=== PATIENT | female | born 1985 | race Caucasian/White ===

== ENCOUNTER → 2016-05-10 | Outpatient (CLI) | payer OTHER | END | disposition home or self-care (01) | LOC: LABWHC1 14:21 | PROVIDERS: ATTEND Obstetrics & Gynecology | DX: O03.9 Complete or unspecified spontaneous abortion without complication (principal) | CPT/HCPCS: 36415; 86694; 86695; 86696 ==

== ENCOUNTER 2016-05-31 19:46 | Emergency (ER) | payer OTHER ==
[2016-05-31 19:59] VITALS: RESP 18; TEMP 97.6
[2016-05-31] MEDS ORDERED: SODIUM CHLORIDE 0.9% 1,000 ML IV STA ×2 (19:59)
--- NOTE | 2016-05-31 20:02 | ED ---
Nausea/Vomiting/Diarrhea HPI - General Chief complaint: Nausea/Vomiting/Diarrhea Stated complaint: vomiting,heart palpitations Time Seen by Provider: 05/31/16 19:46 Source: patient, family, RN notes reviewed Mode of arrival: EMS Limitations: no limitations - History of Present Illness Initial comments: This is a 31-year-old female with a history of being diagnosed with PVCs which she's had none for the past several months also did have a stillborn baby in April 04 of this past year states she was standing doing dishes when she became lightheaded dizzy. She felt weak and felt tachycardic. She did call EMS. She was brought here for evaluation. Per paramedics the heart rate was in the 100 1:15 range. Of note patient states she vomited about 3 times prior to all the symptoms started she does have a past history of bulimia. She didn' t hurt herself today because of apparent distress. Right now she does feel better. She denies any history of thyroid disease no recent fevers chills nausea vomiting sweats although she did feel chilled on the way here. No dysuria no hematuria. MD complaint: nausea, vomiting, other - Related Data Home Medications Medication Instructions Recorded Confirmed No Known Home Medications [No 05/31/16 05/31/16 Known Home Medications] Allergies Allergy/AdvReac Type Severity Reaction Status Date / Time No Known Allergies Allergy Verified 05/31/16 20:11 Review of Systems ROS Statement: Those systems with pertinent positive or pertinent negative responses have been documented in the HPI. ROS Other: All systems not noted in ROS Statement are negative. Past Medical History Past Medical History: No Reported History Additional Past Medical History / Comment(s): History of PVCs History of Any Multi-Drug Resistant Organisms: None Reported Past Surgical History: No Surgical Hx Reported Past Anesthesia/Blood Transfusion Reactions: No Reported Reaction Past Psychological History: Anxiety Smoking Status: Never smoker Past Alcohol Use History: None Reported Past Drug Use History: None Reported - Past Family History Mother Family Medical History: Hypertension Father Family Medical History: Myocardial Infarction ([place]) General Exam - General Exam Comments Initial Comments: This is a well-developed well-nourished awake alert oriented 3 female Limitations: no limitations General appearance: alert, in no apparent distress Head exam: Present: atraumatic, normocephalic, normal inspection Eye exam: Present: normal appearance, PERRL, EOMI. Absent: scleral icterus, conjunctival injection, periorbital swelling ENT exam: Present: normal exam, mucous membranes moist Neck exam: Present: normal inspection. Absent: tenderness, meningismus, lymphadenopathy Respiratory exam: Present: normal lung sounds bilaterally. Absent: respiratory distress, wheezes, rales, rhonchi, stridor Cardiovascular Exam: Present: regular rate, normal rhythm, normal heart sounds. Absent: systolic murmur, diastolic murmur, rubs, gallop, clicks GI/Abdominal exam: Present: soft, normal bowel sounds. Absent: distended, tenderness, guarding, rebound, rigid Extremities exam: Present: normal inspection, full ROM, normal capillary refill. Absent: tenderness, pedal edema, joint swelling, calf tenderness Back exam: Present: normal inspection Neurological exam: Present: alert, oriented X3, CN II-XII intact Psychiatric exam: Present: normal affect, normal mood Skin exam: Present: warm, dry, intact, normal color. Absent: rash Course Vital Signs 05/31/16 19:54 Temperature 97.6 F Pulse Rate 90 Respiratory 18 Rate Blood Pressure 129/59 O2 Sat by Pulse 100 Oximetry Medical Decision Making - Medical Decision Making The patient showing much improvement discuss the findings with her and her and family. The presentation is consistent with a vasovagal episode. Patient be discharged clinically she was also mildly dehydrated. - Lab Data Result diagrams: 05/31/16 20:10 05/31/16 20:10 Lab Results 05/31/16 05/31/16 05/31/16 Range/Units 20:10 20:10 20:10 WBC 7.0 (3.8-10.6) k/uL RBC 3.70 L (3.80-5.40) m/uL Hgb 11.5 (11.4-16.0) gm/dL Hct 34.1 (34.0-46.0) % MCV 92.2 (80.0-100.0) fL MCH 31.2 (25.0-35.0) pg MCHC 33.9 (31.0-37.0) g/dL RDW 11.5 (11.5-15.5) % Plt Count 212 (150-450) k/uL Neutrophils % 78 % Lymphocytes % 13 % Monocytes % 6 % Eosinophils % 1 % Basophils % 0 % Neutrophils # 5.5 (1.3-7.7) k/uL Lymphocytes # 0.9 L (1.0-4.8) k/uL Monocytes # 0.4 (0-1.0) k/uL Eosinophils # 0.1 (0-0.7) k/uL Basophils # 0.0 (0-0.2) k/uL Sodium 141 (137-145) mmol/L Potassium 3.9 (3.5-5.1) mmol/L Chloride 110 H (98-107) mmol/L Carbon Dioxide 24 (22-30) mmol/L Anion Gap 7 mmol/L BUN 11 (7-17) mg/dL Creatinine 0.74 (0.52-1.04) mg/dL Est GFR (MDRD) Af Amer >60 (>60 ml/min/1.73 sqM) Est GFR (MDRD) Non-Af >60 (>60 ml/min/1.73 sqM) Glucose 97 (74-99) mg/dL Calcium 8.6 (8.4-10.2) mg/dL Magnesium 1.9 (1.6-2.3) mg/dL Total Bilirubin 0.3 (0.2-1.3) mg/dL AST 19 (14-36) U/L ALT 34 (9-52) U/L Alkaline Phosphatase 52 (38-126) U/L Total Protein 6.6 (6.3-8.2) g/dL Albumin 3.8 (3.5-5.0) g/dL Urine Color Urine Appearance (Clear) Urine pH (5.0-8.0) Ur Specific [place] (1.001-1.035) Urine Protein (Negative) Urine Glucose (UA) (Negative) Urine Ketones (Negative) Urine Blood (Negative) Urine Nitrate (Negative) Urine Bilirubin (Negative) Urine Urobilinogen (<2.0) mg/dL Ur Leukocyte Esterase (Negative) Urine HCG, Qual Not Detected (Not Detectd) 05/31/16 Range/Units 20:10 WBC (3.8-10.6) k/uL RBC (3.80-5.40) m/uL Hgb (11.4-16.0) gm/dL Hct (34.0-46.0) % MCV (80.0-100.0) fL MCH (25.0-35.0) pg MCHC (31.0-37.0) g/dL RDW (11.5-15.5) % Plt Count (150-450) k/uL Neutrophils % % Lymphocytes % % Monocytes % % Eosinophils % % Basophils % % Neutrophils # (1.3-7.7) k/uL Lymphocytes # (1.0-4.8) k/uL Monocytes # (0-1.0) k/uL Eosinophils # (0-0.7) k/uL Basophils # (0-0.2) k/uL Sodium (137-145) mmol/L Potassium (3.5-5.1) mmol/L Chloride (98-107) mmol/L Carbon Dioxide (22-30) mmol/L Anion Gap mmol/L BUN (7-17) mg/dL Creatinine (0.52-1.04) mg/dL Est GFR (MDRD) Af Amer (>60 ml/min/1.73 sqM) Est GFR (MDRD) Non-Af (>60 ml/min/1.73 sqM) Glucose (74-99) mg/dL Calcium (8.4-10.2) mg/dL Magnesium (1.6-2.3) mg/dL Total Bilirubin (0.2-1.3) mg/dL AST (14-36) U/L ALT (9-52) U/L Alkaline Phosphatase (38-126) U/L Total Protein (6.3-8.2) g/dL Albumin (3.5-5.0) g/dL Urine Color Colorless Urine Appearance Clear (Clear) Urine pH 6.0 (5.0-8.0) Ur Specific [place] 1.003 (1.001-1.035) Urine Protein Negative (Negative) Urine Glucose (UA) Negative (Negative) Urine Ketones Negative (Negative) Urine Blood Negative (Negative) Urine Nitrate Negative (Negative) Urine Bilirubin Negative (Negative) Urine Urobilinogen <2.0 (<2.0) mg/dL Ur Leukocyte Esterase Negative (Negative) Urine HCG, Qual (Not Detectd) - EKG Data -: EKG Interpreted by [place] EKG shows normal: sinus rhythm, axis, intervals, QRS complexes, ST-T waves (EKG was reviewed shows normal sinus rhythm with a rate 95 AL interval 144 QRS duration 68 QT/QTC of 340/[address]-T wave changes.) Rate: normal - Radiology Data Radiology results: report reviewed (I did review the x-ray report no acute findings), image reviewed Disposition Clinical Impression: Vasovagal episode, Dehydration Disposition: HOME SELF-CARE Condition: Good Instructions: Acute Nausea and Vomiting (ED), Near Syncope (ED), Dehydration ( ED)
[2016-05-31 20:34] LABS: Appearance,Urine Clear (Clear); Bilirubin,Urine Negative (Negative); Glucose,Urine (UA) Negative (Negative); Ketones,Urine Negative (Negative); Leukocyte Esterase,Urine Negative (Negative); Nitrite,Urine Negative (Negative); Protein,Urine Negative (Negative); Specific Gravity,Urine 1.003 (1.001-1.035); UA Billing (MACRO vs. MICRO) CHEM; Urobilinogen,Urine <2.0 mg/dL (<2.0)
[2016-05-31 20:41] LABS: Basophils % (A) 0 %; CH 31.4; CHCM 34.2; Eosinophils # (A) 0.1 k/uL (0-0.7); Eosinophils % (A) 1 %; HCT 34.1 % (34.0-46.0); HDW 2.53; HGB 11.5 gm/dL (11.4-16.0); Luc # (Auto) 0.13; Luc % (Auto) 2; Lymphocytes # (A) 0.9 k/uL (1.0-4.8); Lymphocytes % (A) 13 %; MCH 31.2 pg (25.0-35.0); MCHC 33.9 g/dL (31.0-37.0); MCV 92.2 fL (80.0-100.0); Mean Platelet Volume 7.4; Monocytes # (A) 0.4 k/uL (0-1.0); Monocytes % (A) 6 %; Neutrophils # (A) 5.5 k/uL (1.3-7.7); Neutrophils % (A) 78 %; RDW 11.5 % (11.5-15.5)
[2016-05-31 20:46] LABS: ALT 34 U/L (9-52); AST 19 U/L (14-36); Alkaline Phosphatase 52 U/L (38-126); Anion Gap 7 mmol/L; Blood Urea Nitrogen 11 mg/dL (7-17); Calcium 8.6 mg/dL (8.4-10.2); Carbon Dioxide 24 mmol/L (22-30); Chloride 110 mmol/L (98-107); Glucose 97 mg/dL (74-99); Magnesium 1.9 mg/dL (1.6-2.3); Non-African American GFR(MDRD) >60 (>60 ml/min/1.73 sqM); Potassium 3.9 mmol/L (3.5-5.1); Sodium 141 mmol/L (137-145); Total Bilirubin 0.3 mg/dL (0.2-1.3); Total Protein 6.6 g/dL (6.3-8.2)
[2016-05-31 20:57] LABS: Creatine Kinase 45 U/L (30-135)
[2016-05-31 21:10] LABS: Creatine Kinase MB <0.2 ng/mL (0.0-2.4); Troponin I <0.012 ng/mL (0.000-0.034)
--- NOTE | 2016-05-31 21:15 | XR ---
EXAMINATION TYPE: XR chest 2V DATE OF EXAM: 05/31/2016 8:53 PM COMPARISON: Prior chest x-ray August 2015 HISTORY: Dysrhythmia TECHNIQUE: Frontal and lateral views of the chest are obtained. FINDINGS: There is no focal air space opacity, pleural effusion, or pneumothorax seen. The cardiac silhouette size is within normal limits. There are prominent lung volumes suggestive of underlying C OPD. There are overlying cardiac leads. The osseous structures are intact. IMPRESSION: No acute cardiopulmonary process.
[2016-05-31 21:40] VITALS: BP 100/58; PULSE 85
== END 2016-05-31 21:39 | disposition home or self-care (01) ==
LOC: SUPCPDRO 19:46 → EC 19:46
DX: R55 Syncope and collapse (principal); E86.0 Dehydration
CPT/HCPCS: 36415; 71020; 80053; 81003; 81025; 82550; 82553; 83735; 84443; 84484; 85025; 93005; 96360; 99284

== ENCOUNTER 2016-11-09 13:34 | Emergency (ER) | payer OTHER ==
--- NOTE | 2016-11-09 14:43 | ED ---
Dizziness HPI - General Chief Complaint: Dizziness Stated Complaint: Dizzy/Nausea Time Seen by Provider: 11/09/16 14:18 Source: patient Mode of arrival: ambulatory Limitations: no limitations - History of Present Illness Initial Comments: This 31-year-old white female presents with a complaint of some dizziness. She states that this is been intermittent for the last 2 months. It is described as a unsteadiness which is worse with any movement of her head. She has had some tinnitus to her right ear as well. She states that she has had sinus problems over the past 2 months as well. She initially was on a Zithromax Z- Rick and then later on Augmentin. She apparently stopped this approximately 3 days ago. She is also tried Flonase as well as Mucinex, and Isabel-D. She stopped Isabel-D as this made her feel jittery. She only takes the Flonase intermittently. She apparently has an appointment with Dr. Padilla in the next week. She denies any known previous sinus symptoms. She has had some sinus drainage as well as pressure over her maxillary sinuses. She was prescribed Ceftin by her primary care physician recently. She has not started taking this as of yet but did get it filled. No fevers or chills. No other complaints or modifying factors. No hearing loss. She also was prescribed Antivert but has not picked this up as of yet. - Related Data Home Medications Medication Instructions Recorded Confirmed Cefuroxime Axetil [Ceftin] 500 mg PO BID 11/09/16 11/09/16 Allergies Allergy/AdvReac Type Severity Reaction Status Date / Time No Known Allergies Allergy Verified 11/09/16 15:04 Review of Systems ROS Statement: Those systems with pertinent positive or pertinent negative responses have been documented in the HPI. ROS Other: All systems not noted in ROS Statement are negative. Past Medical History Past Medical History: No Reported History Additional Past Medical History / Comment(s): History of PVCs History of Any Multi-Drug Resistant Organisms: None Reported Past Surgical History: No Surgical Hx Reported Past Anesthesia/Blood Transfusion Reactions: No Reported Reaction Past Psychological History: Anxiety Smoking Status: Never smoker Past Alcohol Use History: None Reported Past Drug Use History: None Reported - Past Family History Mother Family Medical History: Hypertension Father Family Medical History: Myocardial Infarction ([place]) General Exam - General Exam Comments Initial Comments: GENERAL: The patient is well nourished and well hydrated. VITAL SIGNS: Heart rate, blood pressure, respiratory rate reviewed as recorded in nurse's notes. EYES: Pupils are round and reactive. Extraocular movements are intact. No conjunctival / lid redness or swelling. ENT: No external evidence of injury, swelling, or ecchymosis. Airway is patent. Throat is clear. Tympanic membranes are clear. There is some mild tenderness over the maxillary sinuses bilaterally. NECK: Nontender. No swelling or evidence of injury. No subcutaneous emphysema. Trachea is midline. No thyroid mass. HEART: Regular rate and rhythm. Good peripheral pulses. LUNGS/CHEST: Breath sounds clear and equal bilaterally. No rales, rhonchi, or wheezes. No ecchymosis, subcutaneous emphysema, or tenderness. ABDOMEN: Abdomen soft without tenderness. No palpable masses or organomegaly. No peritoneal signs. No abdominal wall swelling or ecchymosis. EXTREMITIES: No extremity tenderness. Normal muscle tone and function. No thoracolumbar tenderness. NEUROLOGIC: Sensation is grossly intact. Cranial nerve exam reveals face is symmetrical, tongue is midline, speech is clear. SKIN: No abrasions or ecchymosis is noted. No induration or masses noted. PSYCHIATRIC: Alert and oriented. Appropriate behavior and judgment. Limitations: no limitations Course Vital Signs 11/09/16 13:40 Temperature 98.3 F Pulse Rate 81 Respiratory 17 Rate Blood Pressure 123/70 O2 Sat by Pulse 100 Oximetry Medical Decision Making - Medical Decision Making The patient was seen and examined. All diagnostics were reviewed. He had a computed tomography scan of her brain and sinuses. This did not show any acute process. Is felt that she likely does have a degree of sinusitis which apparently is chronic at this time. She also likely does have a vestibular neuronitis in the right ear. Overall, it appears she is on good treatment. She should start the Ceftin. She also should utilize the Antivert. She is counseled to take the Flonase daily as prescribed. She also is instructed to utilize Mucinex DM [id number] instead of regular Mucinex. It is felt as though she would benefit from follow-up with the ENT physician this next week as scheduled. She does complain of some facial pain and a slight headache and receives a Toradol IM injection. It is felt as though she is stable for discharge. She is counseled regarding her diagnosis in detail and leaves in no distress. Disposition Clinical Impression: Sinusitis, Vertigo, Tinnitus, Vestibular neuronitis, Sinus headache Disposition: HOME SELF-CARE Condition: Good Instructions: Vertigo (ED), Sinusitis (ED) Referrals: Oscar Mann PAC [Family Provider] - 1-2 days Gerardo Bui DO [Doctor of Osteopathic Medicine] - 11/16/16 Time of Disposition: 16:03
--- NOTE | 2016-11-09 15:18 | CT ---
EXAMINATION TYPE: CT brain wo con DATE OF EXAM: 11/09/2016 COMPARISON: 04/08/2012 HISTORY: Dizziness, sinusitis, VILLAFUERTE, ear pain CT DLP: 920.4 mGycm. Automated Exposure Control for Dose Reduction was Utilized. TECHNIQUE: CT scan of the head is performed without contrast. FINDINGS: There is no acute intracranial hemorrhage, mass effect, or midline shift identified. The ventricles and sulci are within normal limits in size. The globes are intact and the visualized sin uses are clear. IMPRESSION: No acute intracranial hemorrhage, mass effect, or midline shift is seen.
--- NOTE | 2016-11-09 15:26 | CT ---
EXAMINATION TYPE: CT sinus wo con DATE OF EXAM: 11/09/2016 COMPARISON: NONE HISTORY: Dizziness, sinusitis, VILLAFUERTE, ear pain CT DLP: 429.4 mGycm. Automated Exposure Control for Dose Reduction was Utilized. TECHNIQUE: CT scan of the sinuses is performed without contrast, axial images are obtained, coronal r eformatted images are also reviewed. FINDINGS: The paranasal sinuses including the frontal, ethmoid, sphenoid, and maxillary sinuses bila terally are well-aerated without abnormal opacification. The ostiomeatal complex is patent bilateral ly on the coronal images. Visualized portion of mastoid air cells show no abnormal opacification. The globes are intact bilate rally. Small guy bullosa on the left. There is a nasal septal deviation. IMPRESSION: The sinuses are clear and the ostiomeatal complex is patent bilaterally.
[2016-11-09] MEDS ORDERED: KETOROLAC 60 MG/2 ML VIAL IM STA (16:04)
[2016-11-09 16:13] VITALS: BP 101/59; PULSE 76; RESP 16; TEMP 97.9
== END 2016-11-09 16:40 | disposition home or self-care (01) ==
LOC: EC 13:34
DX: J32.9 Chronic sinusitis, unspecified (principal); H81.21 Vestibular neuronitis, right ear; H93.11 Tinnitus, right ear
CPT/HCPCS: 70450; 70486; 99284; 96372; J1885

== ENCOUNTER → 2017-01-26 | Outpatient (CLI) | payer OTHER ==
[2017-01-26 20:50] LABS: Clam IgE <0.10 kU/L; Egg White IgE <0.10 kU/L; Peanut IgE <0.10 kU/L; Scallop IgE <0.10 kU/L; Soybean IgE <0.10 kU/L
== END | disposition home or self-care (01) ==
LOC: LABWHC1 13:31
PROVIDERS: ATTEND Internal Medicine Critical Care Medicine
DX: J30.9 Allergic rhinitis, unspecified (principal); Z91.09 Other allergy status, other than to drugs and biological substances
CPT/HCPCS: 36415; 82785; 85008; 86003

== ENCOUNTER 2017-02-08 08:04 | Emergency (ER) | payer OTHER ==
[2017-02-08] MEDS ORDERED: MAG HYDROX/AL HYDROX/SIMETH 30 ML, HYOSCYAMINE ELIXIR 10 ML, CIMETIDINE HCL 300 MG PO STA ×3 (08:33)
[2017-02-08] MEDS ORDERED: SODIUM CHLORIDE 0.9% 500 ML IV STA (08:33)
--- NOTE | 2017-02-08 08:36 | ED ---
Abdominal Pain HPI - General Chief Complaint: Abdominal Pain Stated Complaint: abd pain Time Seen by Provider: 02/08/17 08:20 Source: patient, RN notes reviewed Mode of arrival: ambulatory Limitations: no limitations - History of Present Illness Initial Comments: 31-year-old female presents emergency Department chief complaint stomach issues. Patient states his been on for the last 3 months. Patient states she has seen multiple physicians for this. Patient states that she feels that she is under production of acid. Patient states that she gets severe heartburn especially when she lays down at nighttime. She states she has pain in her epigastric region which is nonradiating also has some dull pain in her midabdomen. Patient states that he can be with any foods. Patient thought she had some ALLERGY to certain foods and had extensive testing with Dr. Leblanc and her primary care physician. Patient states that feels that she is not breaking down proteins and causes her to be dizzy. Patient denies fever, chills, change in bowel habits. Denies any dysuria hematuria. Denies any chance . Patient had no prior abdominal surgeries. - Related Data Previous Rx's Medication Instructions Recorded Omeprazole 40 mg PO DAILY #14 capsule. 02/08/17 Allergies Allergy/AdvReac Type Severity Reaction Status Date / Time No Known Allergies Allergy Verified 02/08/17 08:38 Review of Systems ROS Statement: Those systems with pertinent positive or pertinent negative responses have been documented in the HPI. ROS Other: All systems not noted in ROS Statement are negative. Past Medical History Past Medical History: No Reported History Additional Past Medical History / Comment(s): History of PVCs History of Any Multi-Drug Resistant Organisms: None Reported Past Surgical History: No Surgical Hx Reported Past Anesthesia/Blood Transfusion Reactions: No Reported Reaction Past Psychological History: Anxiety Smoking Status: Never smoker Past Alcohol Use History: None Reported Past Drug Use History: None Reported - Past Family History Mother Family Medical History: Hypertension Father Family Medical History: Myocardial Infarction ([place]) General Exam Limitations: no limitations General appearance: alert, in no apparent distress Head exam: Present: atraumatic, normocephalic, normal inspection Neck exam: Present: normal inspection. Absent: tenderness, meningismus, lymphadenopathy Respiratory exam: Present: normal lung sounds bilaterally. Absent: respiratory distress, wheezes, rales, rhonchi, stridor Cardiovascular Exam: Present: regular rate, normal rhythm, normal heart sounds. Absent: systolic murmur, diastolic murmur, rubs, gallop, clicks GI/Abdominal exam: Present: soft, tenderness (Moderate tenderness epigastric region), normal bowel sounds. Absent: distended, guarding, rebound, rigid Back exam: Absent: CVA tenderness (R), CVA tenderness (L) Skin exam: Present: warm, dry, intact, normal color. Absent: rash Course Vital Signs 02/08/17 08:14 Temperature 97.2 F L Pulse Rate 89 Respiratory 16 Rate Blood Pressure 101/60 O2 Sat by Pulse 100 Oximetry Medical Decision Making - Medical Decision Making 31-year-old female presented emergency from for epigastric pain. Patient's laboratory, ultrasound, x-ray within normal limits. Patient states symptoms are most likely related to GERD/gastritis. Patient believes that she has low acid production. Patient says a mild starting since but I advised her that she should try this to see if it improves. Patient is advised follow-up with on- call GI Dr. Seals. Return parameters were discussed. - Lab Data Result diagrams: 02/08/17 08:26 02/08/17 08:55 Lab Results 02/08/17 02/08/17 02/08/17 Range/Units 08:26 08:55 08:55 WBC 5.9 (3.8-10.6) k/uL RBC 4.15 (3.80-5.40) m/uL Hgb 13.3 (11.4-16.0) gm/dL Hct 39.8 (34.0-46.0) % MCV 95.8 (80.0-100.0) fL MCH 31.9 (25.0-35.0) pg MCHC 33.3 (31.0-37.0) g/dL RDW 12.6 (11.5-15.5) % Plt Count 209 (150-450) k/uL Neutrophils % 76 % Lymphocytes % 14 % Monocytes % 7 % Eosinophils % 1 % Basophils % 0 % Neutrophils # 4.5 (1.3-7.7) k/uL Lymphocytes # 0.8 L (1.0-4.8) k/uL Monocytes # 0.4 (0-1.0) k/uL Eosinophils # 0.1 (0-0.7) k/uL Basophils # 0.0 (0-0.2) k/uL Sodium 141 (137-145) mmol/L Potassium 4.1 (3.5-5.1) mmol/L Chloride 105 (98-107) mmol/L Carbon Dioxide 28 (22-30) mmol/L Anion Gap 8 mmol/L BUN 10 (7-17) mg/dL Creatinine 0.75 (0.52-1.04) mg/dL Est GFR (MDRD) Af Amer >60 (>60 ml/min/1.73 sqM) Est GFR (MDRD) Non-Af >60 (>60 ml/min/1.73 sqM) Glucose 97 (74-99) mg/dL Calcium 9.1 (8.4-10.2) mg/dL Total Bilirubin 0.2 (0.2-1.3) mg/dL AST 19 (14-36) U/L ALT 33 (9-52) U/L Alkaline Phosphatase 63 (38-126) U/L Total Protein 7.0 (6.3-8.2) g/dL Albumin 4.1 (3.5-5.0) g/dL Amylase <30 L (30-110) U/L Lipase 86 (23-300) U/L Urine Color Urine Appearance (Clear) Urine pH (5.0-8.0) Ur Specific [place] (1.001-1.035) Urine Protein (Negative) Urine Glucose (UA) (Negative) Urine Ketones (Negative) Urine Blood (Negative) Urine Nitrite (Negative) Urine Bilirubin (Negative) Urine Urobilinogen (<2.0) mg/dL Ur Leukocyte Esterase (Negative) Urine HCG, Qual Not Detected (Not Detectd) 02/08/17 Range/Units 08:55 WBC (3.8-10.6) k/uL RBC (3.80-5.40) m/uL Hgb (11.4-16.0) gm/dL Hct (34.0-46.0) % MCV (80.0-100.0) fL MCH (25.0-35.0) pg MCHC (31.0-37.0) g/dL RDW (11.5-15.5) % Plt Count (150-450) k/uL Neutrophils % % Lymphocytes % % Monocytes % % Eosinophils % % Basophils % % Neutrophils # (1.3-7.7) k/uL Lymphocytes # (1.0-4.8) k/uL Monocytes # (0-1.0) k/uL Eosinophils # (0-0.7) k/uL Basophils # (0-0.2) k/uL Sodium (137-145) mmol/L Potassium (3.5-5.1) mmol/L Chloride (98-107) mmol/L Carbon Dioxide (22-30) mmol/L Anion Gap mmol/L BUN (7-17) mg/dL Creatinine (0.52-1.04) mg/dL Est GFR (MDRD) Af Amer (>60 ml/min/1.73 sqM) Est GFR (MDRD) Non-Af (>60 ml/min/1.73 sqM) Glucose (74-99) mg/dL Calcium (8.4-10.2) mg/dL Total Bilirubin (0.2-1.3) mg/dL AST (14-36) U/L ALT (9-52) U/L Alkaline Phosphatase (38-126) U/L Total Protein (6.3-8.2) g/dL Albumin (3.5-5.0) g/dL Amylase (30-110) U/L Lipase (23-300) U/L Urine Color Light Yellow Urine Appearance Clear (Clear) Urine pH 6.5 (5.0-8.0) Ur Specific [place] 1.003 (1.001-1.035) Urine Protein Negative (Negative) Urine Glucose (UA) Negative (Negative) Urine Ketones Negative (Negative) Urine Blood Negative (Negative) Urine Nitrite Negative (Negative) Urine Bilirubin Negative (Negative) Urine Urobilinogen <2.0 (<2.0) mg/dL Ur Leukocyte Esterase Negative (Negative) Urine HCG, Qual (Not Detectd) Disposition Clinical Impression: Gastritis, Epigastric abdominal pain Disposition: HOME SELF-CARE Condition: Stable Instructions: Abdominal Pain (ED) Additional Instructions: Please return to the Emergency Department if symptoms worsen or any other concerns. Prescriptions: Omeprazole 40 mg PO DAILY #14 capsule.dr Referrals: Jose Miguel Red MD [Primary Care Provider] - 1-2 days Mallory Johnson MD [STAFF PHYSICIAN] - 1-2 days Time of Disposition: 10:42
[2017-02-08] MEDS: PANTOPRAZOLE 40 MG/10 ML VIAL IVP STA ×2 (08:49→08:51)
[2017-02-08 09:09] LABS: Appearance,Urine Clear (Clear); Bilirubin,Urine Negative (Negative); Glucose,Urine (UA) Negative (Negative); Ketones,Urine Negative (Negative); Leukocyte Esterase,Urine Negative (Negative); Nitrite,Urine Negative (Negative); PH, Urine 6.5 (5.0-8.0); Protein,Urine Negative (Negative); Specific Gravity,Urine 1.003 (1.001-1.035); UA Billing (MACRO vs. MICRO) CHEM; Urobilinogen,Urine <2.0 mg/dL (<2.0)
[2017-02-08 09:19] LABS: Basophils % (A) 0 %; CH 32.5; CHCM 34.1; Eosinophils # (A) 0.1 k/uL (0-0.7); Eosinophils % (A) 1 %; HCT 39.8 % (34.0-46.0); HDW 2.34; HGB 13.3 gm/dL (11.4-16.0); Luc # (Auto) 0.12; Luc % (Auto) 2; Lymphocytes # (A) 0.8 k/uL (1.0-4.8); Lymphocytes % (A) 14 %; MCH 31.9 pg (25.0-35.0); MCHC 33.3 g/dL (31.0-37.0); MCV 95.8 fL (80.0-100.0); Mean Platelet Volume 7.4; Monocytes # (A) 0.4 k/uL (0-1.0); Monocytes % (A) 7 %; Neutrophils # (A) 4.5 k/uL (1.3-7.7); Neutrophils % (A) 76 %; RBC 4.15 m/uL (3.80-5.40); RDW 12.6 % (11.5-15.5); WBC 5.9 k/uL (3.8-10.6); WBC (Perox) 6.29
[2017-02-08 09:21] LABS: ALT 33 U/L (9-52); AST 19 U/L (14-36); Alkaline Phosphatase 63 U/L (38-126); Amylase <30 U/L (30-110); Anion Gap 8 mmol/L; Blood Urea Nitrogen 10 mg/dL (7-17); Calcium 9.1 mg/dL (8.4-10.2); Carbon Dioxide 28 mmol/L (22-30); Chloride 105 mmol/L (98-107); Glucose 97 mg/dL (74-99); Non-African American GFR(MDRD) >60 (>60 ml/min/1.73 sqM); Potassium 4.1 mmol/L (3.5-5.1); Sodium 141 mmol/L (137-145); Total Bilirubin 0.2 mg/dL (0.2-1.3)
--- NOTE | 2017-02-08 10:07 | US ---
EXAMINATION TYPE: US abdomen limited DATE OF EXAM: 02/08/2017 COMPARISON: NONE CLINICAL HISTORY: Pain. Abdomen pain, patient ate 3 hours prior to test EXAM MEASUREMENTS: Liver Length: 15.6 cm Gallbladder Wall: 0.2 cm CBD: 0.3 cm Right Kidney: 10.9 x 4.0 x 4.0 cm Pancreas: visualized portions wnl, tail limited by overlying midline bowel gas Liver: wnl Gallbladder: wnl Evidence for sonographic Calle's sign: no CBD: wnl Right Kidney: wnl IMPRESSION: No shadowing mobile gallstones or ultrasound evidence for acute cholecystitis
--- NOTE | 2017-02-08 10:34 | XR ---
EXAMINATION TYPE: XR chest 1V DATE OF EXAM: 02/08/2017 COMPARISON: Prior chest x-ray 05/31/2016 HISTORY: Pain TECHNIQUE: Single frontal view of the chest is obtained. FINDINGS: There is no focal air space opacity, pleural effusion, or pneumothorax seen. The cardiac silhouette size is within normal limits. The osseous structures are intact. IMPRESSION: No acute process.
[2017-02-08 11:04] VITALS: BP 118/68; PULSE 79; RESP 18; TEMP 98.2
== END 2017-02-08 11:00 | disposition home or self-care (01) ==
LOC: EC 08:04
DX: K29.70 Gastritis, unspecified, without bleeding (principal); Z53.20 Procedure and treatment not carried out because of patient's decision for unspecified reasons
CPT/HCPCS: 36415; 71010; 76705; 80053; 81003; 81025; 82150; 83690; 85025; 86677; 96360; 99284

== ENCOUNTER → 2017-03-08 | Outpatient (CLI) | payer OTHER ==
[2017-03-09 13:05] LABS: Avocado Class CLASS 0; Banana IgE Class CLASS 0; Cow's Milk IgE Class CLASS 0; Egg White IgE <0.35 kU/L (<0.35); Hazelnut IgE <0.35 kU/L (<0.35); Hazelnut IgE Class CLASS 0; Kiwi IgE <0.35 kU/L (<0.35); Kiwi IgE Class CLASS 0; Peanut IgE <0.35 kU/L (<0.35); Potato IgE <0.35 kU/L (<0.35); Potato IgE Class CLASS 0; Soybean IgE <0.35 kU/L (<0.35)
[2017-03-09 13:41] LABS: Crab IgE <0.35 kU/L (<0.35); Crab IgE Class CLASS 0; Lettuce IgE Class CLASS 0; Pork IgE Class CLASS 0
[2017-03-09 13:42] LABS: Beef IgE <0.35 kU/L (<0.35); Beef IgE Class CLASS 0; Salmon IgE <0.35 kU/L (<0.35); Salmon IgE Class CLASS 0
[2017-03-09 13:43] LABS: Egg Yolk IgE Class CLASS 0; Oat IgE Class CLASS 0; Onion IgE <0.35 kU/L (<0.35); Onion IgE Class CLASS 0; Yeast Bakers/Brew IgE <0.35 kU/L (<0.35); Yeast Bakers/Brew IgE Class CLASS 0
[2017-03-09 13:44] LABS: Celery IgE <0.35 kU/L (<0.35); Celery IgE Class CLASS 0; Chicken IgE Class CLASS 0; Chocolate IgE Class CLASS 0; Latex IgE Class CLASS 0; Lobster IgE <0.35 kU/L (<0.35); Lobster IgE Class CLASS 0
[2017-03-09 13:45] LABS: Alternaria alternata IgE <0.35 kU/L (<0.35); Asperg. fumagatus IgE <0.35 kU/L (<0.35); Asperg. fumagatus IgE Class CLASS 0; Aureo. pullulans IgE <0.35 kU/L (<0.35); Birch(Com.Silvr) IgE Class CLASS 0; Candida albicans IgE Class CLASS 0; Cat Epith & Dander IgE <0.35 kU/L (<0.35); Cat Epith & Dander IgE Class CLASS 0; Clad herbarum IgE <0.35 kU/L (<0.35); Clad herbarum IgE Class CLASS 0; Coffee IgE <0.35 kU/L (<0.35); Coffee IgE Class CLASS 0; Com. Pigweed IgE <0.35 kU/L (<0.35); Com. Pigweed IgE Class CLASS 0; Common Ragweed IgE Class CLASS 0; Dermato. Pteronyssinus Class CLASS III; Dermato. farinae IgE 5.68 kU/L (<0.35); Dermato. farinae IgE Class CLASS III; English Plantain IgE Class CLASS 0; Epicoccum purpurascens Class CLASS 0; Epicoccum purpurascens IgE <0.35 kU/L (<0.35); Johnson Grass IgE Class CLASS 0; Lamb's Quarter IgE <0.35 kU/L (<0.35); Lamb's Quarter IgE Class CLASS 0; Maple (Box Elder) IgE <0.35 kU/L (<0.35); Maple (Box Elder) IgE Class CLASS 0; Mucor racemosus IgE <0.35 kU/L (<0.35); Mucor racemosus IgE Class CLASS 0; Oak IgE <0.35 kU/L (<0.35); Rhizopus nigricans IgE <0.35 kU/L (<0.35); Rhizopus nigricans IgE Class CLASS 0; S.rostrata/Helminth Class CLASS 0; S.rostrata/Helminth IgE <0.35 kU/L (<0.35); Sycamore(Mpl.Lf) IgE <0.35 kU/L (<0.35); Sycamore(Mpl.Lf) IgE Class CLASS 0; Tea IgE <0.35 kU/L (<0.35); Tea IgE Class CLASS 0; Timothy Grass IgE <0.35 kU/L (<0.35); Timothy Grass IgE Class CLASS 0; Walnut Tree IgE <0.35 kU/L (<0.35); White Ash IgE Class CLASS 0
[2017-03-10 17:03] LABS: Tea IgG 2.9 mcg/mL (<2.0)
[2017-03-10 23:30] LABS: Chocolate IgG 6.3 mcg/mL (< 2.0)
[2017-03-10 23:31] LABS: Banana IgG 22.4 mcg/mL (< 2.0); Beef IgG 14.3 mcg/mL (< 2.0); Crab IgG 8.5 mcg/mL (< 2.0); Orange IgG 4.7 mcg/mL (< 2.0); Pork IgG 7.4 mcg/mL (< 2.0); Walnut IgG 5.7 mcg/mL (< 2.0)
[2017-03-10 23:32] LABS: Chicken Meat IgG 6.9 mcg/mL (< 2.0); Coffee IgG 7.4 mcg/mL (< 2.0)
[2017-03-10 23:33] LABS: Corn IgG 11.5 mcg/mL (< 2.0); Cow's Milk IgG 62.8 mcg/mL (< 2.0); Oat IgG 14.1 mcg/mL (< 2.0); Peanut IgG 5.1 mcg/mL (< 2.0); Potato IgG 5.3 mcg/mL (< 2.0); Soybean IgG 3.9 mcg/mL (< 2.0); Tomato IgG 9.3 mcg/mL (< 2.0)
[2017-03-13 15:07] LABS: Mis test requested (Blood) Onion IgG
[2017-03-13 15:13] LABS: Mis test requested (Blood) Lettuce IgG
[2017-03-13 15:15] LABS: Mis test requested (Blood) Shrimp IgG
[2017-03-13 15:17] LABS: Mis test requested (Blood) Salmon IgG
[2017-03-13 15:19] LABS: Mis test requested (Blood) Lobster IgG
[2017-03-13 15:21] LABS: Mis test requested (Blood) Strawberry IgG
== END | disposition home or self-care (01) ==
LOC: LABWHC1 13:43
PROVIDERS: ATTEND Otolaryngology
DX: L50.0 Allergic urticaria (principal); R20.2 Paresthesia of skin
CPT/HCPCS: 36415; 82607; 86001; 86003

== ENCOUNTER 2017-03-14 23:50 | Emergency (ER) | payer OTHER ==
[2017-03-15] MEDS ORDERED: KETOROLAC 30 MG/ML 1 ML VIAL ONE (00:44)
[2017-03-15] MEDS ORDERED: SODIUM CHLORIDE 0.9% 1,000 ML BAG ONE (00:44)
--- NOTE | 2017-03-15 05:43 | XR ---
INDICATION: Cough COMPARISON: CXR 03/02/17 FINDINGS: PA and lateral views of the chest are obtained. The cardiomediastinal silhouette is within normal limits. Lungs are clear. No pleural effusion or pneumothorax. No acute osseous findings. IMPRESSION: No radiographic evidence of acute cardiopulmonary disease.
== END 2017-03-15 02:35 | disposition home or self-care (01) ==
LOC: EC 23:50
DX: R07.9 Chest pain, unspecified (principal); F41.9 Anxiety disorder, unspecified; F32.9 Major depressive disorder, single episode, unspecified; Z79.899 Other long term (current) drug therapy
CPT/HCPCS: 36415; 71020; 81025; 84484; 93005; 96361; 96374; 99285

== ENCOUNTER → 2017-03-15 | Outpatient (CLI) | payer OTHER ==
[2017-03-15 13:24] LABS: CH 30.8; CHCM 32.5; HCT 34.9 % (34.0-46.0); HDW 2.39; HGB 11.6 gm/dL (11.4-16.0); MCH 31.7 pg (25.0-35.0); MCHC 33.2 g/dL (31.0-37.0); MCV 95.3 fL (80.0-100.0); Mean Platelet Volume 7.3; RBC 3.66 m/uL (3.80-5.40); WBC 9.6 k/uL (3.8-10.6)
[2017-03-15 13:38] LABS: ALT 42 U/L (9-52); AST 19 U/L (14-36); Alkaline Phosphatase 57 U/L (38-126); Anion Gap 8 mmol/L; Blood Urea Nitrogen 11 mg/dL (7-17); Carbon Dioxide 24 mmol/L (22-30); Chloride 107 mmol/L (98-107); Glucose 90 mg/dL (74-99); Non-African American GFR(MDRD) >60 (>60 ml/min/1.73 sqM); Potassium 4.1 mmol/L (3.5-5.1); Sodium 139 mmol/L (137-145); Total Bilirubin 0.4 mg/dL (0.2-1.3); Total Protein 6.4 g/dL (6.3-8.2)
[2017-03-15 18:45] LABS: Prolactin 7.6 ng/mL (2.8-29.2)
[2017-03-15 21:15] LABS: ACTH 24.2 pg/mL (0.00-45.99)
== END | disposition home or self-care (01) ==
LOC: LABWHC1 12:17
PROVIDERS: ATTEND Internal Medicine Endocrinology, Diabetes & Metabolism
DX: R53.83 Other fatigue (principal)
CPT/HCPCS: 36415; 80053; 82024; 82533; 82607; 84146; 84439; 84443; 84481; 85027

== ENCOUNTER 2017-03-19 13:41 | Inpatient (IN) | payer OTHER, MEDICAID ==
[2017-03-19 14:01] LABS: Glucose,Whole Blood 90 mg/dL (75-99)
--- NOTE | 2017-03-19 14:06 | ED ---
Psych HPI - General Chief Complaint: Psychiatric Symptoms Stated Complaint: Mental Health Time Seen by Provider: 03/19/17 13:51 Source: patient, RN notes reviewed Mode of arrival: ambulatory Limitations: no limitations - History of Present Illness Initial Comments: This a 31-year-old female presents emergency Department with chief complaint of depression, suicidal thoughts. Patient states that she's been dealing with chronic health issues and states that it has been wearing on her. Patient states that she's become so depressed that she's felt that she wants to kill herself. Patient has not planned anything. Patient denies any illicit drug use or any alcohol use. Patient states that she was found to have a candidal infection that she was treated for. Patient also states that surrounded have multiple ALLERGIES and saw Dr. Lezama. Patient states that she has no history of depression though she does have some underlying anxiety. Patient denies any illicit drug use or alcohol abuse - Related Data Home Medications Medication Instructions Recorded Confirmed L.acidoph,Paracasei, B.lactis 1 cap PO DAILY 02/23/17 03/19/17 [Probiotic] Sertraline [Zoloft] 50 mg PO DAILY 03/19/17 03/19/17 Allergies Allergy/AdvReac Type Severity Reaction Status Date / Time adhesive Allergy MADE SKIN Verified 03/19/17 14:09 BURN Review of Systems ROS Statement: Those systems with pertinent positive or pertinent negative responses have been documented in the HPI. ROS Other: All systems not noted in ROS Statement are negative. Past Medical History Past Medical History: Blood Disorder, GERD/Reflux Additional Past Medical History / Comment(s): HAS LOW PROTEIN S - OR INCR RISK OF DVT. History of PVCs. HYPOGLYCEMIA. BURNING IN UPPER LT BREAST X1 MO. History of Any Multi-Drug Resistant Organisms: None Reported Past Surgical History: No Surgical Hx Reported Additional Past Surgical History / Comment(s): EXC OF WISDOM TEETH. Past Anesthesia/Blood Transfusion Reactions: No Reported Reaction Past Psychological History: No Psychological Hx Reported Smoking Status: Never smoker Past Alcohol Use History: None Reported Past Drug Use History: None Reported - Past Family History Mother Family Medical History: Hypertension Father Family Medical History: Deep Vein Thrombosis (DVT), Myocardial Infarction ([place]) General Exam Limitations: no limitations General appearance: alert, in no apparent distress Head exam: Present: atraumatic, normocephalic, normal inspection Eye exam: Present: normal appearance, PERRL, EOMI. Absent: scleral icterus, conjunctival injection, periorbital swelling ENT exam: Present: normal exam, normal oropharynx Neck exam: Present: normal inspection, full ROM. Absent: tenderness, meningismus, lymphadenopathy Respiratory exam: Present: normal lung sounds bilaterally. Absent: respiratory distress, wheezes, rales, rhonchi, stridor Cardiovascular Exam: Present: regular rate, normal rhythm, normal heart sounds. Absent: systolic murmur, diastolic murmur, rubs, gallop, clicks Neurological exam: Present: alert, oriented X3, CN II-XII intact Psychiatric exam: Present: anxious Skin exam: Present: warm, dry, intact, normal color. Absent: rash Course Vital Signs 03/19/17 13:43 Temperature 97.9 F Pulse Rate 98 Respiratory 16 Rate Blood Pressure 107/65 O2 Sat by Pulse 100 Oximetry Medical Decision Making - Lab Data Lab Results 03/19/17 03/19/17 03/19/17 Range/Units 14:00 14:17 14:17 POC Glucose (mg/dL) 90 (75-99) mg/dL POC Glu Operation Specialist ID Salud Fofana Urine HCG, Qual Not Detected (Not Detectd) Urine Opiates Screen Not Detected (NotDetected) Ur Oxycodone Screen Not Detected (NotDetected) Urine Methadone Screen Not Detected (NotDetected) Ur Propoxyphene Screen Not Detected (NotDetected) Ur Barbiturates Screen Not Detected (NotDetected) U Tricyclic Antidepress Not Detected (NotDetected) Ur Phencyclidine Scrn Not Detected (NotDetected) Ur Amphetamines Screen Not Detected (NotDetected) U Methamphetamines Scrn Not Detected (NotDetected) U Benzodiazepines Scrn Not Detected (NotDetected) Urine Cocaine Screen Not Detected (NotDetected) U Marijuana (THC) Screen Not Detected (NotDetected) Disposition Clinical Impression: Acute anxiety, Depression Disposition: ADMITTED IP TO THIS [facility] Condition: Stable Referrals: Jose Miguel Red MD [Primary Care Provider] - 1-2 days
[2017-03-19] MEDS ORDERED: MAG HYDROX/AL HYDROX/SIMETH 30 ML CUP PO PRN (18:02)
[2017-03-19] MEDS ORDERED: MAGNESIUM HYDROXIDE 2,400 MG/10 ML CUP PO PRN (18:02)
[2017-03-19] MEDS ORDERED: ACETAMINOPHEN TAB 325 MG TAB PO PRN (18:02)
[2017-03-19] MEDS ORDERED: ZIPRASIDONE 20 MG VIAL IM PRN (18:02)
[2017-03-19 18:18] LABS: Appearance,Urine Clear (Clear); Bilirubin,Urine Negative (Negative); Glucose,Urine (UA) Negative (Negative); Ketones,Urine Negative (Negative); Leukocyte Esterase,Urine Negative (Negative); Nitrite,Urine Negative (Negative); Protein,Urine Negative (Negative); Specific Gravity,Urine 1.005 (1.001-1.035); UA Billing (MACRO vs. MICRO) CHEM; Urobilinogen,Urine <2.0 mg/dL (<2.0)
[2017-03-19 19:20] VITALS: BMI 20.2
[2017-03-19] MEDS: LORazepam 1 MG TAB PO PRN (20:55)
[2017-03-19] MEDS: ARTIFICIAL TEARS OINTMENT 3.5 GM TUBE BOTH EYES PRN (22:26)
[2017-03-20 08:38] LABS: CH 31.2; CHCM 33.7; HCT 42.6 % (34.0-46.0); HDW 2.62; HGB 13.9 gm/dL (11.4-16.0); MCH 30.5 pg (25.0-35.0); MCHC 32.8 g/dL (31.0-37.0); MCV 93.1 fL (80.0-100.0); Mean Platelet Volume 6.8; RBC 4.57 m/uL (3.80-5.40); RDW 12.2 % (11.5-15.5); WBC 6.8 k/uL (3.8-10.6); WBC (Perox) 6.66
[2017-03-20 08:52] LABS: ALT 35 U/L (9-52); AST 18 U/L (14-36); Alkaline Phosphatase 61 U/L (38-126); Anion Gap 10 mmol/L; Blood Urea Nitrogen 13 mg/dL (7-17); Calcium 9.9 mg/dL (8.4-10.2); Carbon Dioxide 26 mmol/L (22-30); Chloride 104 mmol/L (98-107); Glucose 104 mg/dL (74-99); Non-African American GFR(MDRD) >60 (>60 ml/min/1.73 sqM); Potassium 3.8 mmol/L (3.5-5.1); Sodium 140 mmol/L (137-145); Total Bilirubin 0.5 mg/dL (0.2-1.3); Total Protein 7.5 g/dL (6.3-8.2)
[2017-03-20] MEDS: ARTIFICIAL TEARS-HYPROMELLOSE DROPS 15 ML BTL BOTH EYES PRN (08:59)
[2017-03-20] MEDS: SERTRALINE 50 MG TAB PO SCH (08:59)
[2017-03-20] MEDS: LACTOBACILLUS ACIDOPH & BULGAR 1 EACH PACKET PO SCH (13:09)
--- NOTE | 2017-03-20 15:02 | P.CONS ---
History of Present Illness - Reason for Consult Vaginal candidiasis - History of Present Illness Patient was admitted the secondary to depression and suicidal ideation to psychiatric floor. Patient has psychiatric related multiple medical misconceptions patient doesn't have any medical problems she believes she has candidemia. She is not sure but she is having discharge which is whitish in color for vaginal area and she doesn't want flucanazole but okay with nystatin. Patient denied any fever, chills but she is she may have fever today morning her temperature is always 98.1 now 99.1 and she is concerned about that. Patient denied any abdominal pain dysuria patient denied any cough. Review of Systems REVIEW OF SYSTEMS: CONSTITUTIONAL: No fever, no malaise, no fatigue. HEENT: No recent visual problems or hearing problems. Denied any sore throat. CARDIOVASCULAR: No chest pain, orthopnea, PND, no palpitations, no syncope. PULMONARY: No shortness of breath, no cough, no hemoptysis. GASTROINTESTINAL: No diarrhea, no nausea, no vomiting, no abdominal pain. Normoactive bowel sounds. NEUROLOGICAL: No headaches, no weakness, no numbness. HEMATOLOGICAL: Denies any bleeding or petechiae. GENITOURINARY: Denies any burning micturition, frequency, or urgency. MUSCULOSKELETAL/RHEUMATOLOGICAL: Denies any joint pain, swelling, or any muscle pain. ENDOCRINE: Denies any polyuria or polydipsia. The rest of the 14-point review of systems is negative. Past Medical History Past Medical History: Blood Disorder, GERD/Reflux Additional Past Medical History / Comment(s): HAS LOW PROTEIN S - OR INCR RISK OF DVT. History of PVCs. HYPOGLYCEMIA. BURNING IN UPPER LT BREAST X1 MO. History of Any Multi-Drug Resistant Organisms: None Reported Past Surgical History: No Surgical Hx Reported Additional Past Surgical History / Comment(s): EXC OF WISDOM TEETH. Past Anesthesia/Blood Transfusion Reactions: No Reported Reaction Smoking Status: Never smoker - Past Family History Mother Family Medical History: Hypertension Father Family Medical History: Deep Vein Thrombosis (DVT), Myocardial Infarction ([place]) Medications and Allergies Home Medications Medication Instructions Recorded Confirmed Type L.acidoph,Paracasei, B.lactis 1 cap PO DAILY 02/23/17 03/19/17 History [Probiotic] Sertraline [Zoloft] 50 mg PO DAILY 03/19/17 03/19/17 History Allergies Allergy/AdvReac Type Severity Reaction Status Date / Time adhesive Allergy Mild MADE SKIN Verified 03/19/17 18:46 BURN corn Allergy Itching Verified 03/19/17 18:46 rice AdvReac Wheezing Verified 03/19/17 18:46 Physical Exam Vitals: Vital Signs Temp Pulse Pulse Resp BP BP Pulse Ox 03/20/17 07:13 99.1 F 92 16 111/59 03/19/17 19:11 98.2 F 86 16 115/80 03/19/17 18:14 98.1 F 89 18 113/71 98 Intake and Output 03/19/17 03/20/17 03/20/17 22:59 06:59 14:59 Other: Weight 55.338 kg PHYSICAL EXAMINATION: GENERAL: The patient is alert and oriented x3, not in any acute distress. Well developed, well nourished. HEENT: Pupils are round and equally reacting to light. EOMI. No scleral icterus. No conjunctival pallor. Normocephalic, atraumatic. No pharyngeal erythema. No thyromegaly. CARDIOVASCULAR: S1 and S2 present. No murmurs, rubs, or gallops. PULMONARY: Chest is clear to auscultation, no wheezing or crackles. ABDOMEN: Soft, nontender, nondistended, normoactive bowel sounds. No palpable organomegaly. MUSCULOSKELETAL: No joint swelling or deformity. EXTREMITIES: No cyanosis, clubbing, or pedal edema. NEUROLOGICAL: Gross neurological examination did not reveal any focal deficits. SKIN: No rashes. Results CBC & Chem 7: 03/20/17 08:09 03/20/17 08:09 Labs: Abnormal Lab Results - Last 24 Hours (Table) 03/20/17 Range/Units 08:09 Glucose 104 H (74-99) mg/dL Assessment and Plan Plan: #1 possible vaginal candidiasis: Patient will be started on topical nystatin. #2 severe depression and suicidal ideation: Management as per primary service is. We'll sign off at this point of time, please call us back if needed.
[2017-03-20] MEDS: NYSTATIN 100,000UNIT/GM CREAM 30 GM TUBE TOPICAL SCH ×2 (16:04→17:32)
[2017-03-20 17:32] LABS: Add Differential Manual Differential
[2017-03-20 17:37] LABS: Nucleated Red Blood Cells 0 /100 WBC (0-0); Total Cells Counted 100
[2017-03-20 17:38] LABS: Manual Review Performed
[2017-03-20] MEDS: ARTIFICIAL TEARS OINTMENT 3.5 GM TUBE BOTH EYES PRN (20:51)
[2017-03-20] MEDS ORDERED: TERCONAZOLE 0.8% VAGINAL CREAM 20 GM TUBE VAGINAL SCH (21:00)
[2017-03-20] MEDS: LORazepam 1 MG TAB PO PRN (21:39)
--- NOTE | 2017-03-21 00:22 | P.HP ---
Psychiatric H&P - . H&P Date: 03/20/17 History & Physical: VITALS: 3 03/20/17 07:13 Temperature 99.1 F Pulse Rate Pulse Rate [ 92 Right Sitting] Respiratory 16 Rate Blood Pressure Blood Pressure 111/59 [Right Arm] O2 Sat by Pulse Oximetry LABS: HPI: Patient is 31 year old female who presents with chief complaint of anxiety that has lead to recent SI due to her special diet regimen. 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 Since that time, she has developed multiple food allergies that are excessive in number and confirmed by laboratory testing performed in both 2016 and 2017. Patient is frustrated no definitive diagnosis has been given to why she tends to develop a food allergy to a given food she consumes for any length of time. Patient was introduced to her current diet by her sister who reportedly had similar symptoms. It involves avoid certain foods that fungi nourishing, known to cause an inflammatory reaction, and cycling foods that are tolerated. This is a time consuming task, and patient reports being obsessed with it to point that it has started to cause relationship, functional problems such forgetting to fold the laundry because she was too worried about dinner. She reports significant support from friends and family and most of all her has recently started to have fleeting thoughts of suicidal ideaton. Denies any history of self harm or harm to others. Denies any psychiatric or substance abuse history. At this time, patient denies SI/HI/AVH. PSYCHIATRIC HISTORY: None PAST MEDICAL HISTORY: Past Medical History: Blood Disorder, GERD/Reflux Additional Past Medical History / Comment(s): HAS LOW PROTEIN S - OR INCR RISK OF DVT. History of PVCs. HYPOGLYCEMIA. BURNING IN UPPER LT BREAST X1 MO. History of Any Multi-Drug Resistant Organisms: None Reported Past Surgical History: No Surgical Hx Reported Additional Past Surgical History / Comment(s): EXC OF WISDOM TEETH. Past Anesthesia/Blood Transfusion Reactions: No Reported Reaction Smoking Status: Never smoker PAST FAMILY HISTORY: Mother Family Medical History: Hypertension HOME MEDICATIONS: L.acidoph,Paracasei, B.lactis 1 cap PO DAILY Sertraline [Zoloft] 50 mg PO DAILY ALLERGIES: Allergy/AdvReac Type Severity Reaction Status Date / Time adhesive Allergy Mild MADE SKIN Verified 03/19/17 18:46 BURN corn Allergy Itching Verified 03/19/17 18:46 lactose AdvReac Unknown Verified 03/20/17 20:34 rice AdvReac Wheezing Verified 03/19/17 18:46 SOCIAL HISTORY: Education: BA in graphic communications Occupational: Environmental: lives at home with , son : no Restorationism: Moravian Access to firearms: no Sexual orientation: heterosexual Safety at home: yes Patient denies any significant developmental or trauma history. Both parents are alive and still , 2 brothers, 3 sisters, is best support system STRENGTHS/WEAKNESSES: "I'm a very buddhist person, so that's my strength" "I have an OCD about a lot of things, need control" MENTAL STATUS EXAM: Appearance: alert, well groomed, appears stated age, steady gait Behavior: no psychomotor agitation or psychomotor retardation, no abnormal movements, fair eye contact Attitude: cooperative Speech: normal rate, rhythm, fluency, articulation, volume, and prosody; primary language: Korean Mood: euthymic Affect: congruent, reactive Thought processes: linear Thought content: patient does not appear to be responding to internal stimuli; patient denies auditory and visual hallucinations, no delusions appreciated Insight: fair Judgment: fair Cognitive: oriented to all 3 spheres, average intelligence Assessment and Plan (1) Anxiety disorder Current Visit: Yes Status: Acute Code(s): F41.9 - ANXIETY DISORDER, UNSPECIFIED SNOMED Code(s): 943433426 (2) Somatic symptom disorder Narrative/Plan: Extensive chart review is significant of patient having >10 food allergies confirmed by laboratory studies done in 2016 and again in 2017; given this, the recent abnormal CBC and BRIANNA her excessive anxiety may be considered a normal response given the circumstances, but given she does endorse disruption in daily life she still qualifies for the diagnosis Current Visit: Yes Status: Acute Code(s): F45.1 - UNDIFFERENTIATED SOMATOFORM DISORDER SNOMED Code(s): 130313201 Plan: Continue hospitalization Peripheral blood smear ordered given absence of eosinophils in CBC differential BRIANNA with reflex to titer ordered to follow up on previous positive result Patient encouraged to attend group, recreational, and activity therapies SW will arrange a family meeting prior to discharge Estimated LOS: 2-3 days Time with Patient: Greater than 30
[2017-03-21 07:00] VITALS: BP 93/55; PULSE 95; RESP 12; TEMP 99
[2017-03-21] MEDS: ARTIFICIAL TEARS-HYPROMELLOSE DROPS 15 ML BTL BOTH EYES PRN ×2 (07:55→12:19)
[2017-03-21] MEDS: SERTRALINE 50 MG TAB PO SCH (08:35)
[2017-03-21] MEDS: LACTOBACILLUS ACIDOPH & BULGAR 1 EACH PACKET PO SCH (12:18)
[2017-03-21 13:37] LABS: Glucose,Whole Blood 124 mg/dL (75-99)
== END 2017-03-21 16:24 | disposition home or self-care (01) | DRG 880 ==
LOC: EC 13:41 → 3MHU 17:49
PROVIDERS: ADMIT Psychiatry & Neurology Psychiatry; ATTEND Psychiatry & Neurology Psychiatry
DX: F41.9 Anxiety disorder, unspecified (principal); R45.851 Suicidal ideations; F32.9 Major depressive disorder, single episode, unspecified; B37.3 Candidiasis of vulva and vagina; F45.9 Somatoform disorder, unspecified; F42.9 Obsessive-compulsive disorder, unspecified; K21.9 Gastro-esophageal reflux disease without esophagitis; Z79.899 Other long term (current) drug therapy; Z91.011 Allergy to milk products; Z91.018 Allergy to other foods; Z91.048 Other nonmedicinal substance allergy status; Z82.49 Family history of ischemic heart disease and other diseases of the circulatory system; Z83.2 Family history of diseases of the blood and blood-forming organs and certain disorders involving the immune mechanism
CPT/HCPCS: 36415; 80053; 80306; 81003; 81025; 82075; 83036; 84443; 85025; 86038; 99285

== ENCOUNTER → 2017-05-12 | Outpatient (CLI) | payer OTHER ==
[2017-05-12 15:27] LABS: C Reactive Protein <5.0 mg/L (<10.0)
== END | disposition home or self-care (01) ==
LOC: LABWHC1 14:41
PROVIDERS: ATTEND Internal Medicine Clinical Cardiac Electrophysiology
DX: D89.40 Mast cell activation, unspecified (principal); R00.2 Palpitations; R63.4 Abnormal weight loss
CPT/HCPCS: 36415; 84260; 84443; 85652; 86140

== ENCOUNTER → 2017-05-16 | Outpatient (CLI) | payer OTHER ==
[2017-05-16 11:26] VITALS: BMI 19.8
== END | disposition home or self-care (01) ==
LOC: MNTWWP 11:01
PROVIDERS: ATTEND Otolaryngology
DX: Z91.018 Allergy to other foods (principal)
CPT/HCPCS: 97804

== ENCOUNTER → 2017-05-30 | Outpatient (CLI) | payer OTHER ==
--- NOTE | 2017-05-30 13:38 | CT ---
EXAMINATION TYPE: CT abdomen pelvis w con DATE OF EXAM: 05/30/2017 HISTORY: Right sided pain for [address] DLP: 778mGycm Automated Exposure Control for Dose Reduction was Utilized. CONTRAST: CT scan of the abdomen and pelvis is performed with IV Contrast, patient injected with 100 mL of Omni paque 300. COMPARISON: Abdominal ultrasound dated 02/08/2017 FINDINGS: LUNG BASES: No significant abnormality is appreciated. LIVER/GB: 2 small to accurately characterize 3 mm hypoattenuated hepatic lesion is seen within segmen t 8 of the liver. Additional hypoattenuated geographic triangular region in segment IVb of the liver is seen near the fissure for the falciform ligament, most commonly related to focal fatty infiltratio n. Lastly within segment 7 there is an additional 3 mm too small to accurately characterize hypoatten uated hepatic lesion on series 3 image 10. No evidence of radiopaque calculi within the gallbladder o r gallbladder wall thickening. PANCREAS: No significant abnormality is seen. No ductal dilatation. SPLEEN: No significant abnormality is seen. No splenomegaly. ADRENALS: No significant abnormality is seen. No adrenal gland nodules or thickening. KIDNEYS: Kidneys enhance and excrete symmetrically. No hydronephrosis. BOWEL: What appears to be the appendix is contrast-filled on series 3 image 52, within normal limits without. Mesial fat stranding also containing a focus of air. No evidence of bowel obstruction. Mode rate amount retained stool seen throughout the colon. No evidence of bowel dilation or focal bowel wa ll thickening. UTERUS/ADNEXA: There is thickening of the junctional zone up to 1.2 cm on sagittal series 6 image 27 concerning for adenomyosis. Additionally the cervix is ill-defined and, which may be related to the p hase of contrast although appears bulky and heterogenous in enhancement. Numerous right-sided follicl es are seen and small left follicles are also identified. LYMPH NODES: No greater than 1cm abdominal or pelvic lymph nodes are appreciated. OSSEOUS STRUCTURES: No significant abnormality is seen. IMPRESSION: 1. The junctional zone thickening, not typically seen on CT, concerning for underlying adenomyosis. T his is best evaluated with enhanced pelvic MR although ultrasound could initially be performed for fu rther evaluation. Additionally there is heterogeneity, bulkiness and ill-definition of the cervix whi ch can also be evaluated with MR or ultrasound. 2. No CT evidence of acute cholecystitis or appendicitis. HIDA scan with CCK could be performed for f urther evaluation of this patient with right-sided abdominal pain to evaluate for chronic cholecystit is and/or biliary dyskinesia. 3. Hepatic lesions that are too small to accurately characterize. Given the patient's age and lack of history of hepatocellular disease these may represent cysts and additional area of focal fatty infil tration.
== END | disposition home or self-care (01) ==
LOC: RADCTMAIN 10:58
PROVIDERS: ATTEND Family Medicine
DX: K76.9 Liver disease, unspecified (principal); R10.84 Generalized abdominal pain
CPT/HCPCS: 74177; Q9967

== ENCOUNTER → 2017-06-08 | Outpatient (CLI) | payer OTHER ==
[2017-06-09 10:26] LABS: Gluten IgE Class CLASS 0
== END ==
LOC: LABWHC1 14:12
PROVIDERS: ATTEND Otolaryngology
DX: J30.89 Other allergic rhinitis (principal)
CPT/HCPCS: 36415; 86001; 86003

== ENCOUNTER → 2017-06-08 | Outpatient (CLI) | payer OTHER ==
--- NOTE | 2017-06-08 16:06 | US ---
EXAMINATION TYPE: US pelvis complete transvag DATE OF EXAM: 06/08/2017 COMPARISON: NONE CLINICAL HISTORY: R10.2 Pelvic pain. Pelvic pain x 1 month, darker blood during cycle and watery disc harge TECHNIQUE: TA and TV Date of LMP: 05/22/2017 EXAM MEASUREMENTS: Uterus: 8.9 x 5.7 x 5.0 cm Endometrial Stripe: 1.1cm Right Ovary: 3.4 x 2.5 x 2.4 cm Left Ovary: 2.7 x 2.3 x 1.7 cm 1. Uterus: Retroverted wnl 2. Endometrium: wnl 3. Right Ovary: There is a 2.4 x 1.8 x 2.5 cm cyst on the right ovary. 4. Left Ovary: wnl 5. Bilateral Adnexa: wnl 6. Posterior cul-de-sac: wnl IMPRESSION: 1. Right ovarian cyst. Follow-up exam following the next normal menstrual period is recommended.
== END | disposition home or self-care (01) ==
LOC: RADUSWWP 14:57
PROVIDERS: ATTEND Family Medicine
DX: N83.201 Unspecified ovarian cyst, right side (principal)
CPT/HCPCS: 76830; 76856

== ENCOUNTER → 2017-06-08 | Outpatient (CLI) | payer OTHER ==
--- NOTE | 2017-06-08 15:55 | CT ---
EXAMINATION TYPE: CT orbits w con DATE OF EXAM: 06/08/2017 COMPARISON: NONE INDICATION: Lateral side orbital pain with dry eyes. DLP: 385.7 mGycm, Automated exposure control for dose reduction was used. CONTRAST: [address] of the orbits is performed utilizing 3 mm thick sections through the bilateral orbits. Study is pe rformed within 24 hours of arrival to the hospital. Reconstructed coronal plane images are reviewed. Findings: Paranasal sinuses are clear. Osseous structures appear normal including maxillary spine and nasal bon es. Zygomatic arches are intact. Greater wings of sphenoid are normal. Septal deviation to the left i s evident. There is a left guy bullosa. Ostiomeatal units are patent. Paravertebral soft tissues are normal. The globes are symmetrical. Lenses appear normal. Lacrimal gla nd regions appear normal bilaterally. Intraconal and coronal fat is normal. Extraocular muscles appea r normal. Optic nerves appear normal. Superior mesenteric veins are normal bilaterally. No suspicious enhancement is evident within the [id number]. Portions of the brain included are unr emarkable. IMPRESSIONS: 1. Unremarkable bilateral orbits.
== END | disposition home or self-care (01) ==
LOC: RADCTMAIN 14:28
PROVIDERS: ATTEND Ophthalmology
DX: H57.10 Ocular pain, unspecified eye (principal)
CPT/HCPCS: 70481; Q9967

== ENCOUNTER → 2017-07-12 | Outpatient (CLI) | payer OTHER | END | disposition home or self-care (01) | LOC: LABWHC1 14:18 | PROVIDERS: ATTEND Internal Medicine Clinical Cardiac Electrophysiology | DX: I26.99 Other pulmonary embolism without acute cor pulmonale (principal); R53.83 Other fatigue; R61 Generalized hyperhidrosis | CPT/HCPCS: 36415; 85379 ==

== ENCOUNTER 2018-03-16 02:05 | Inpatient (IN) | payer OTHER ==
[2018-03-16] MEDS ORDERED: OXYTOCIN 10 UNIT/ML 1 ML VIAL IM PRN (03:47)
[2018-03-16] MEDS ORDERED: LIDOCAINE 1% INJ 10MG/ML (20 ML MDV) SQ PRN (03:47)
[2018-03-16] MEDS ORDERED: TERBUTALINE 1 MG/ML VIAL SQ PRN (03:47)
[2018-03-16] MEDS ORDERED: METHYLERGONOVINE 0.2 MG/ML 1 ML AMP IM PRN (03:47)
[2018-03-16] MEDS ORDERED: CARBOPROST TROMETHAMINE 250 MCG/ML 1 ML AMP IM PRN (03:47)
[2018-03-16 04:10] VITALS: BMI 28.3
[2018-03-16] MEDS ORDERED: SODIUM CHLORIDE 0.9% 100 ML BAG ONE (04:15)
[2018-03-16] MEDS ORDERED: ROPIVACAINE 5MG/ML 20ML VIAL ONE (04:15)
[2018-03-16] MEDS ORDERED: fentaNYL (PF) 50 MCG/ML 5 ML AMP ONE (04:15)
[2018-03-16] MEDS: LACTATED RINGERS 1,000 ML IV SCH (04:31)
[2018-03-16] MEDS ORDERED: ROPIVACAINE 100 MG, fentaNYL (PF) 200 MCG in SODIUM CHLORIDE 0.9% 76 ML EPIDURAL ONE (05:10)
[2018-03-16 06:46] LABS: Basophils % (A) 0 %; Eosinophils # (A) 0.1 k/uL (0-0.7); Eosinophils % (A) 1 %; HCT 35.3 % (34.0-46.0); HGB 11.9 gm/dL (11.4-16.0); Lymphocytes # (A) 1.7 k/uL (1.0-4.8); Lymphocytes % (A) 14 %; MCH 33.3 pg (25.0-35.0); MCHC 33.8 g/dL (31.0-37.0); MCV 98.4 fL (80.0-100.0); Monocytes # (A) 0.6 k/uL (0-1.0); Monocytes % (A) 5 %; Neutrophils # (A) 9.1 k/uL (1.3-7.7); Neutrophils % (A) 78 %; Platelet Count 249 k/uL (150-450); RBC 3.59 m/uL (3.80-5.40); RDW 12.7 % (11.5-15.5); WBC 11.7 k/uL (3.8-10.6)
[2018-03-16 06:54] LABS: INR 0.9 (<1.2); Partial Thromboplastin Time 23.5 sec (22.0-30.0); Prothrombin Time 9.3 sec (9.0-12.0)
--- NOTE | 2018-03-16 09:15 | P.HPOB ---
History of Present Illness H&P Date: 03/16/18 This is a 32-year-old white female 4 para 10-1 EDC 03/31/2018 at 37-6/7 weeks' gestation. Patient presented with strong regular uterine contractions, in active spontaneous labor. Fetus is been active throughout the . She denied fluid leakage or vaginal bleeding. Past medical history is significant for positive MTH of our, on baby aspirin daily. She also has a history of low protein S, and a history of depression previously on Zoloft. Past surgical history is negative. Current medications 81 mg aspirin daily, vitamin daily, Zoloft 100 mg daily. ALLERGIES none known. Family history significant for double bypass surgery in the patient's father. Obstetric history significant for full-term stillbirth delivered vaginally in 2010. Social history patient is , she has never been a smoker, she denies alcohol or drug use. Obstetric history is significant for blood type A+, rubella status immune. Urine culture, hepatitis B surface antigen, HIV testing, gonorrhea and chlamydia cultures, group B strep cultures all negative. One-hour Glucola 83. On exam this is a pleasant white female, 5 foot 5 inches, 170 pounds, blood pressure 113/68 on admission. Patient is afebrile. The general physical exam is within normal limits. The cervix at this time is 9 cm dilated, 90% effaced, -1-0 station, vertex presentation. Artificial amniorrhexis reveals clear fluid. heart tones are in the 140s with frequent accelerations consistent with reactive NST. Patient is shelton every 4 minutes spontaneously. Epidural has been placed per her request. Impression: 37-6/7 weeks intrauterine , active spontaneous labor. All signs reassuring. Plan: Continue close maternal and surveillance. Anticipate normal spontaneous vaginal delivery. Review of Systems Except as in HPI Constitutional: Reports as per HPI Past Medical History Past Medical History: Blood Disorder, GERD/Reflux Additional Past Medical History / Comment(s): HAS LOW PROTEIN S - OR INCR RISK OF DVT. History of PVCs. HYPOGLYCEMIA. BURNING IN UPPER LT BREAST X1 MO. History of Any Multi-Drug Resistant Organisms: None Reported Past Surgical History: No Surgical Hx Reported Additional Past Surgical History / Comment(s): EXC OF WISDOM TEETH. Past Anesthesia/Blood Transfusion Reactions: No Reported Reaction Past Psychological History: No Psychological Hx Reported Additional Psychological History / Comment(s): NO CURRENT PROB Smoking Status: Never smoker Past Alcohol Use History: None Reported Past Drug Use History: None Reported - Past Family History Mother Family Medical History: Hypertension Father Family Medical History: Deep Vein Thrombosis (DVT), Myocardial Infarction ([place]) Medications and Allergies Home Medications Medication Instructions Recorded Confirmed Type L.acidoph,Paracasei, B.lactis 1 cap PO DAILY 02/23/17 03/19/17 History [Probiotic] Sertraline [Zoloft] 50 mg PO DAILY 03/19/17 03/19/17 History Sertraline [Zoloft] 50 mg PO DAILY 14 Days tab 03/21/17 Rx Terconazole 0.8% Vaginal Cream 1 applic VAGINAL HS #2 applic 03/21/17 Rx [Terazol 3] Allergies Allergy/AdvReac Type Severity Reaction Status Date / Time adhesive Allergy Mild MADE SKIN Verified 03/16/18 02:15 BURN heparin Allergy Unknown Verified 03/16/18 02:15 Childhood corn AdvReac Itching Verified 03/16/18 02:15 lactose AdvReac Unknown Verified 03/16/18 02:15 rice AdvReac Wheezing Verified 03/16/18 02:15 Exam Vital Signs Temp Pulse Resp BP 03/16/18 04:32 97 F L 100 16 113/68 03/16/18 04:05 97 F L 100 16 113/68 Intake and Output 03/15/18 03/16/18 03/16/18 22:59 06:59 14:59 Output Total 100 Balance -100 Output: Urine 100 Other: Weight 77.111 kg See dictation under HPI please Results Result Diagrams: 03/16/18 03:53 Abnormal Lab Results - Last 24 Hours (Table) 03/16/18 Range/Units 03:53 WBC 11.7 H (3.8-10.6) k/uL RBC 3.59 L (3.80-5.40) m/uL Neutrophils # 9.1 H (1.3-7.7) k/uL Assessment and Plan Assessment: 37-6/7 weeks intrauterine , active spontaneous labor. All signs reassuring. Plan: Continue close maternal and surveillance. Anticipate normal spontaneous vaginal delivery. Time with Patient: Less than 30
[2018-03-16] MEDS ORDERED: ZOLPIDEM 5 MG TAB PO PRN (11:15)
[2018-03-16] MEDS ORDERED: diphenhydrAMINE 50 MG/ML 1 ML VIAL IVP PRN ×2 (11:15)
[2018-03-16] MEDS ORDERED: diphenhydrAMINE 50 MG CAP PO PRN (11:15)
[2018-03-16] MEDS ORDERED: HYDROCORTISONE 2.5% RECTAL CREAM 30 GM TUBE RECTAL PRN (11:15)
[2018-03-16] MEDS ORDERED: LANOLIN CREAM 5 GM TUBE TOPICAL PRN (11:15)
[2018-03-16] MEDS ORDERED: SIMETHICONE 80 MG CHEWABLE PO PRN (11:15)
[2018-03-16] MEDS ORDERED: diphenhydrAMINE 25 MG CAP PO PRN (11:15)
[2018-03-16] MEDS ORDERED: WITCH HAZEL 1 EACH MED..PAD TOPICAL PRN (11:15)
[2018-03-16] MEDS ORDERED: diphenhydrAMINE ELIXIR 25 MG/10 ML CUP PO PRN (11:15)
[2018-03-16] MEDS ORDERED: ACETAMINOPHEN TAB 325 MG TAB PO PRN (11:15)
[2018-03-16] MEDS ORDERED: BENZOCAINE/MENTHOL SPRAY 1 GM/SPRAY AEROSOL TOPICAL PRN (11:15)
--- NOTE | 2018-03-16 11:15 | P.PROBDLV ---
Vaginal Delivery Note - . Vaginal Delivery Note: This is a 32-year-old white female 4 para 1021 EDC 03/31/2018 at 37-6/7 weeks' gestation. Patient presented with strong regular contractions from home. She was judged to be in early labor and therefore admitted. is remarkable for positive MTH of our, patient on baby aspirin daily. Blood type A+, rubella status immune. He could be strep cultures negative. Please see my dictated history and physical for details. Artificial amniorrhexis revealed clear fluid. Epidural was placed per her request. heart tones were reassuring throughout the first and second stages of labor. Patient was judged to be completely dilated at 1003 hrs. and began the second stage of labor at that time. Ultimately good maternal efforts were noted, the perineal body was prepped and draped in usual sterile fashion. Infant's head delivered occiput anterior and he restituted accordingly. There was no nuchal cord noted. The right or anterior shoulder was delivered easily from underneath the pubic symphysis at which time the oropharynx, nasopharynx, and external nares were all bulb suctioned on the perineal body. Patient was officially delivered of a liveborn male at 1101 hrs. Umbilical cord was doubly clamped and ligated, he was handed to waiting nurses for evaluation where scores of 9 and 9 at one and 5 minutes respectively were given. weighs 6 lbs. 13 oz. or 3100 g. The uterus is massaged. The placentas delivered spontaneously, it is inspected and noted to be intact with trivascular cord at 1103 hrs. At this time inspection of the cervix, vagina, perineum, periurethral, and perirectal areas reveals no lacerations and no defects. Total estimated blood loss 250 mL's. All sponge needle and instrument counts are correct at the end of the procedure. Patient will restart her baby aspirin daily. They are requesting circumcision for her infant son.
[2018-03-16] MEDS ORDERED: OXYTOCIN 20 UNITS/1000 ML NS 1,000 ML IV SCH (11:45)
[2018-03-16] MEDS: IBUPROFEN 600 MG TAB PO PRN ×2 (13:58→19:38)
[2018-03-16] MEDS: SENNOSIDES-DOCUSATE SODIUM 1 EACH TAB PO SCH (19:37)
[2018-03-17] MEDS: IBUPROFEN 600 MG TAB PO PRN ×2 (04:11→18:53)
[2018-03-17] MEDS: SENNOSIDES-DOCUSATE SODIUM 1 EACH TAB PO SCH (08:18)
[2018-03-17] MEDS ORDERED: ASPIRIN 81 MG PO SCH (09:00)
--- NOTE | 2018-03-17 11:38 | P.DS ---
Providers Date of admission: 03/16/18 03:35 Expected date of discharge: 03/17/18 Attending physician: Mena Corona Primary care physician: Mena Corona - Discharge Diagnosis(es) (1) 37 or more weeks gestation of Current Visit: Yes Status: Acute (2) Spontaneous onset of labor Current Visit: Yes Status: Acute (3) Normal spontaneous vaginal delivery Current Visit: Yes Status: Acute Hospital Course: This is a 32-year-old 4 now para 20-2 woman who presented at 37-6/7 weeks gestation in spontaneous active labor. was complicated by positive MTHFR gene mutation for which she is on a baby aspirin daily. Following admission she did receive an epidural anesthetic and underwent artificial rupture of membranes. She went on to have an uncomplicated vaginal delivery of a liveborn male over an intact perineum with Apgars of 9 at 1 minute and 9 at 5 minutes weighing 6 lbs. 13 oz. Her course was unremarkable. By day #1 she was complaining of feeling exhausted and sore however reports decreasing lochia and no difficulty with ambulating and voiding. Her vital signs were stable and her lochia was moderate. She had restarted her aspirin 81 mg daily. She was discharged home on day # 1 with routine instructions for care and follow-up Plan - Discharge Summary New Discharge Prescriptions: New Aspirin 81 mg PO DAILY chew No Action L.acidoph,Paracasei, B.lactis [Probiotic] 1 cap PO DAILY Sertraline [Zoloft] 50 mg PO DAILY Sertraline [Zoloft] 50 mg PO DAILY 14 Days tab Terconazole 0.8% Vaginal Cream [Terazol 3] 1 applic VAGINAL HS #2 applic Discharge Medication List L.acidoph,Paracasei, B.lactis [Probiotic] 1 cap PO DAILY 02/23/17 [History] Sertraline [Zoloft] 50 mg PO DAILY 03/19/17 [History] Sertraline [Zoloft] 50 mg PO DAILY 14 Days tab 03/21/17 [Rx] Terconazole 0.8% Vaginal Cream [Terazol 3] 1 applic VAGINAL HS #2 applic [Rx] Aspirin 81 mg PO DAILY chew 03/17/18 [Rx] Follow up Appointment(s)/Referral(s): Mena Corona MD [Primary Care Provider] - 6 Weeks Activity/Diet/Wound Care/Special Instructions: Follow-up in the office in 6 weeks . Call with any concerning signs or symptoms including heavy vaginal bleeding, severe abdominal pain, fever greater than 101, swelling or redness of the lower extremities, foul vaginal discharge, or signs of depression. Nothing in the vagina for 6 weeks after delivery, specifically no intercourse.
[2018-03-17] MEDS: LACTATED RINGERS 1,000 ML IV SCH (21:10)
[2018-03-18] MEDS: SENNOSIDES-DOCUSATE SODIUM 1 EACH TAB PO SCH ×2 (01:12→08:23)
[2018-03-18] MEDS: IBUPROFEN 600 MG TAB PO PRN ×2 (04:41→11:50)
[2018-03-18 08:21] VITALS: BP 105/64; PULSE 83; RESP 16; TEMP 98
== END 2018-03-18 13:30 | disposition home or self-care (01) | DRG 806 ==
LOC: FBPOP 02:05 → 4FBP 03:35
PROVIDERS: ADMIT Obstetrics & Gynecology; ATTEND Obstetrics & Gynecology
PROC: 00HU33Z Insertion of Infusion Device into Spinal Canal, Percutaneous Approach (ICD-10-PCS; principal; 2018-03-16)
PROC: 10E0XZZ Delivery of Products of Conception, External Approach (ICD-10-PCS; principal; 2018-03-16)
PROC: 3E0R3NZ Introduction of Analgesics, Hypnotics, Sedatives into Spinal Canal, Percutaneous Approach (ICD-10-PCS; principal; 2018-03-16)
PROC: 10907ZC Drainage of Amniotic Fluid, Therapeutic from Products of Conception, Via Natural or Artificial Opening (ICD-10-PCS; principal; 2018-03-16)
DX: O99.344 Other mental disorders complicating childbirth (principal); O99.12 Other diseases of the blood and blood-forming organs and certain disorders involving the immune mechanism complicating childbirth; Z37.0 Single live birth; D68.59 Other primary thrombophilia; F32.9 Major depressive disorder, single episode, unspecified; Z3A.37 37 weeks gestation of pregnancy; Z79.82 Long term (current) use of aspirin; Z79.899 Other long term (current) drug therapy; Z82.49 Family history of ischemic heart disease and other diseases of the circulatory system; Z88.8 Allergy status to other drugs, medicaments and biological substances; Z91.018 Allergy to other foods
CPT/HCPCS: 59025; 85025; 85610; 85730; 86850; 86900; 86901; 99213